=== PATIENT | male | born 1970 | race Caucasian/White ===

== ENCOUNTER 2023-07-31 09:00 | Inpatient (IN) | payer OTHER, SELFPAY ==
[2023-07-31 09:28] VITALS: BP 111/84
[2023-07-31] MEDS: ELIQUIS 5 MG PO ×2 (09:30→20:15)
[2023-07-31] MEDS: CARDIZEM CD 120 MG PO (09:30)
[2023-07-31 09:56] LABS: Hematocrit 36.1 % (39.0-52.0); Hemoglobin 12.8 g/dL (13.0-18.0); Mean Corp Hgb Conc. 35.5 g/dL (33.0-37.0); Mean Corpuscular Hgb 31.1 pg (27.0-31.0); Mean Corpuscular Volume 87.8 fL (80.0-94.0); Mean Platelet Volume 9.5 fL (7.4-10.4); Platelet Count 318 10^3/uL (130-400); Red Blood Cell Count 4.11 10^6/uL (4.70-6.10); Red Cell Dist. Width 12.3 % (11.5-14.5)
[2023-07-31 10:05] LABS: ALT (SGPT) 30 U/L (0-50); AST (SGOT) 28 U/L (17-59); Albumin 4.2 g/dl (3.5-5.0); Alkaline Phosphatase 64 U/L (38-126); Blood Urea Nitrogen 16 mg/dl (9-20); Calcium 9.4 mg/dl (8.4-10.2); Carbon Dioxide 29 mmol/L (22-30); Chloride 105 mmol/L (98-107); Glucose 85 mg/dl (70-99); Magnesium 2.2 mg/dl (1.6-2.3); Potassium 4.3 mmol/L (3.5-5.1); Sodium 137 mmol/L (135-145); Total Bilirubin 0.7 mg/dl (0.2-1.3); eGFR > 60.00
--- NOTE | 2023-07-31 10:23 | W.CARD.TIKOS ---
Initiate Tikosyn
-
I verify that the patient has not taken any verapamil (Isoptin/Calan), ketoconazole (Nizoral), cimetidine (Tagamet), trimethoprim (Trimpex), trimethoprim/sulfamethoxazole (Bactrim), megesterol (Megace), prochlorperazine (Compazine),
hydrochlorothiazide (HCTZ), dolutegravir (Tivicay) or any Class I or Class III anti-arrhythmic within the last three days
AND
I verify that the patient has not taken amiodarone within the last THREE months, or that the patient's amiodarone plasma concentration is <0.3 mcg/mL.
Creatinine 1.0 mg/dL (0.7-1.3) 07/31/23 09:38
CrCl greater than 60.
Does patient have a Ventricular Conduction Abnormality: No
I have assessed the baseline QTc interval (using QT for heart rate less than 60 bpm) and deemed the patient is appropriate for Dofetilide therapy. I understand that Tikosyn is contraindicated if the QTc is >440msec (500msec in patients with
ventricular conduction abnormalities).
Baseline QTc (in msec): 442
QTc interval is greater than 440msec without conduction abnormality OR greater than 500msec with a conduction abnormality, but acceptable to proceed per Cardiology attending.
Reason for Administration with Prolonged QTc: Other Atrial Arrhythmia
Ordering Physician: Roni West
--- NOTE | 2023-07-31 10:23 | W.PN.CARDCBS ---
Addendum entered and electronically signed by Deepa Woods DO 07/31/23 12:22:
I saw and examined the patient.
The Slide Fastener Chain Assembler's note was reviewed and I agree with the note.
Comment: Seen and examined with at bedside. Patient offers no specific complaints admitted for Tikosyn initiation. He denies interruption or missed doses of Eliquis
GEN: NAD. AAOx3
HEENT: EOMI, MMM
LUNGS: CTA B/L, no wheezes or rales
CV: Irreg irreg, S1/S2, no murmur
ABD: soft, BS+, NT, ND
EXT: No clubbing, cyanosis, lesions or edema B/L
NEURO: Gross non-focal
Plan:
-Elective admission for Tikosyn loading for persistent Afib.
-Patient was seen in [facility] for a [facility] and syncope 01/09/23 and found to be in new Afib. He returned for a LISBETH/CV 01/25/24 and was back in Afib by 01/31/23 based on his HR being 103 by Kardiamobile device, but he never feels palpitations, heart racing or
fatigue. Patient was seen by EP in the office 02/20/23 and reviewed ablation vs AAD and patient took time to consider his options and then decided on Tikosyn after follow up visit 07/17/23.
- Reviewed Tikosyn medication and QTc monitoring. Reviewed the possibility of spontaneous conversion and if not, then DCCV on 08/02/23.
-Start Tikosyn 500 mcg q 12 hours with CrCl greater than 60.
-Tele and EKG monitoring
-Cont outpatient dose of Cardizem CD 120 mg daily for now and follow HR.
-Patient denies missing any doses of Eliquis 5 mg BID.
-Potassium and magnesium normal at 4.3/2.2 respectively. Repeat BMP in AM.
-OP follow up with EP
Original Note:
Today's Communication / Plan
-
Start Tikosyn 500 mcg q 12 hours and follow QTc by ECG
Impression / Plan
-
CP: [facility], Dr. Carrington
Cardiology: Dr. West
Impression:
Direct admission for Tikosyn loading 07/31/23
Persistent Afib
s/p LISBETH/CV 01/24/23
Chronic Eliquis OAC
h/o ER visit for fall, syncope and new Afib 01/09/23
Echo 01/09/2023: EF 55-60%, no significant valve disease, PAP 22 mmHg
LISBETH 01/24/23: EF 55-60%, no REJI thrombus, mild MR, normal aortic valve
Plan:
-Patient presents to for elective admission for Tikosyn loading for persistent Afib. Patient was seen in [facility] for a [facility] and syncope 01/09/23 and found to be in new Afib. He returned for a LISBETH/CV 01/25/24 and was back in Afib by 01/31/23 based on his
HR being 103 by Cardia mobile device, but he never feels palpitations, heart racing or fatigue. Patient was seen by EP in the office 02/20/23 and reviewed ablation vs AAD and patient took time to consider his options and then decided on Tikosyn after
follow up visit 07/17/23. Patient has not missed any doses of Eliquis.
-Talked with patient and significant other in the room. Reviewed Tikosyn medication and QTc monitoring. Reviewed the possibility of spontaneous conversion and if not then CV on 08/02/23.
-Start Tikosyn 500 mcg q 12 hours with CrCl greater than 60.
-Cont outpatient dose of Cardizem CD 120 mg daily for now and follow HR.
-Patient denies missing any doses of Eliquis 5 mg BID.
-Potassium and magnesium normal at 4.3/2.2 respectively. Repeat BMP in AM.
-Talked with patient and SO about ablation as well. Current plan is to proceed with Tikosyn load and gauge symptoms in SR, if he is truly asymptomatic in Afib vs SR then he might opt for rate control along, but if he feels better then he would be
interested in ablation
Progress Note - Relief Manager
Subjective
Date of Service: July 31, 2023
Feels well, no palpitations
Objective
Labs:
07/31/23 09:
07/31/23:
Labs
Hgb 12.8 g/dL (13.0-18.0) L 07/31/23:
Hct 36.1 % (39.0-52.0) L 07/31/23:
Plt Count 318 10^3/uL (130-400) 07/31/23 09:
Sodium 137 mmol/L (135-145) 07/31/23 09:
Potassium 4.3 mmol/L (3.5-5.1) 07/31/23:
BUN 16 mg/dl (9-20) 07/31/23 09:38
Creatinine 1.0 mg/dL (0.7-1.3) 07/31/23 09:38
Glucose 85 mg/dl (70-99) 07/31/23 09:38
Vital Signs and I&O:
111/84, HR 82, RR 16, spO2 98% RA
Physical Exam
Physical Exam
GEN: NAD. AAOx3
HEENT: EOMI, MMM
LUNGS: CTA B/L, no wheezes or rales
CV: Irreg irreg, S1/S2, no murmur
ABD: soft, BS+, NT, ND
EXT: No clubbing, cyanosis, lesions or edema B/L
NEURO: Gross non-focal
SKIN: No rash, warm, dry
[2023-07-31 10:34] VITALS: BMI 26.8
[2023-07-31] MEDS: TIKOSYN 500 MCG PO ×2 (10:51→22:00)
--- NOTE | 2023-07-31 12:31 | CM ---
spoke to pt in room, he is prev indep, lives with his S.O. in a 2 story home with a first floor set up and no steps to enter. he denies any dme's or dc planning needs. plan is for dc to home when medically stable.
[2023-07-31 12:35] VITALS: BP 131/98
[2023-07-31 12:37] VITALS: BP 119/75
--- NOTE | 2023-07-31 13:39 | PTCARENOTE ---
Pt admitted this am for a Tikosyn load. Pt in afib in the 80's to 100's. First dose of Tikosyn given and tolerated well. Yuliet Hale updated on QTC result. Pt with no c/o offered.
[2023-07-31 17:25] VITALS: BP 136/87
[2023-07-31 19:26] VITALS: BP 128/87
[2023-07-31] MEDS: TYLENOL 650 MG PO (20:16)
--- NOTE | 2023-07-31 21:04 | PTCARENOTE ---
assumed care of patient at the change of shift. AAOx3. independent in the room. Afib on tele 80s-100s. increased HR with ambulation. patient denies any symptoms of afib. c/o mild headache. no PRN tylenol ordered. notified Dr. West. Tylenol PRN
order placed per Dr. West and given, see mar. answered all questions. reviewed plan of care with patient and verbalized understanding. call hardy within reach. calls appropriately.
[2023-08-01] VITALS (8 sets, daily range): BP systolic 111–130; BP diastolic 75–93
--- NOTE | 2023-08-01 05:15 | PTCARENOTE ---
patient slept well overnight. no complaints at this time. afib/aflutter 70s-80s.
[2023-08-01 05:50] LABS: Blood Urea Nitrogen 18 mg/dl (9-20); Calcium 9.9 mg/dl (8.4-10.2); Carbon Dioxide 31 mmol/L (22-30); Chloride 102 mmol/L (98-107); Estimated Creatinine Clearance 88 ml/min; Glucose 99 mg/dl (70-99); Potassium 4.4 mmol/L (3.5-5.1); Sodium 140 mmol/L (135-145); eGFR > 60.00
[2023-08-01] MEDS: CARDIZEM CD 120 MG PO (07:56)
[2023-08-01] MEDS: ELIQUIS 5 MG PO ×2 (07:56→19:55)
[2023-08-01] MEDS: TIKOSYN 500 MCG PO ×2 (08:55→19:55)
--- NOTE | 2023-08-01 09:06 | W.PN.CARDCBS ---
Addendum entered and electronically signed by Jorje Hackett MD 08/01/23 11:37:
I saw and examined the patient.
The Shrimp Trawler's note was reviewed and I agree with the note.
Comment:
GEN: No distress, awake, Ox3
HEENT: supple, anicteric, mmm
LUNGS: CTA, no wheezes/rales
CV: irreg, S1/S2, / syst LSB, no gallop
ABD: soft, BS+, NT/ND
EXT: No edema
NEURO: Gross non-focal
SKIN: No rash
Plan:
Remains in atrial flutter. Continue Tikosyn 500 mcg every 12.
QTc 491 ms. Continue to follow QT interval.
Plan for cardioversion in a.m. if remains in a flutter.
Cont Eliquis 5mg po bid
Original Note:
Today's Communication / Plan
-
Cont Tikosyn 500 mcg q12 hours loading and CV in AM
Impression / Plan
-
CP: [facility], Dr. Carrington
Cardiology: Dr. West
Impression:
Direct admission for Tikosyn loading 07/31/23
Persistent Afib
s/p LISBETH/CV 01/24/23
Chronic Eliquis OAC
h/o ER visit for fall, syncope and new Afib 01/09/23
Echo 01/09/2023: EF 55-60%, no significant valve disease, PAP 22 mmHg
LISBETH 01/24/23: EF 55-60%, no REJI thrombus, mild MR, normal aortic valve
Plan:
-QTc stable at 491 ms after 3rd dose of Tikosyn 500 mcg q 12 hours given 08/01/23 AM. 5th dose scheduled for 08/02/23 AM.
-If patient fails to convert overnight then plan is for CV 08/02/23 AM and then d/c to home thereafter
-No missed doses of Eliquis
-Cont usual dose of Cardizem CD 120 mg daily for now, but if bradycardic will need
-Talked with patient and SO about ablation as well. Current plan is to proceed with Tikosyn load and gauge symptoms in SR, if he is truly asymptomatic in Afib vs SR then he might opt for rate control along, but if he feels better then he would be
interested in ablation
HPI: Patient presents to for elective admission for Tikosyn loading for persistent Afib. [facility] was [facility] for [facility] and syncope 01/09/23 and found to be in new Afib. He returned for a LISBETH/CV 01/25/24 and was back in Afib by 01/31/23 based on
his HR being 103 by Cardia mobile device, but he never feels palpitations, heart racing or fatigue. Patient was seen by EP in the office 02/20/23 and reviewed ablation vs AAD and patient took time to consider his options and then decided on Tikosyn
after follow up visit 07/17/23. Patient has not missed any doses of Eliquis.
Progress Note - Sub Master
Subjective
Date of Service: August 01, 2023
He feels well, uneventful night
Objective
Labs:
07/31/23 09:38
08/01/23 05:09
Labs
Hgb 12.8 g/dL (13.0-18.0) L 07/31/23 09:38
Hct 36.1 % (39.0-52.0) L 07/31/23 09:38
Plt Count 318 10^3/uL (130-400) 07/31/23 09:38
Sodium 140 mmol/L (135-145) 08/01/23 05:09
Potassium 4.4 mmol/L (3.5-5.1) 08/01/23 05:09
BUN 18 mg/dl (9-20) 02/06/24 05:09
Creatinine 1.1 mg/dL (0.7-1.3) 08/01/23 05:09
Glucose 99 mg/dl (70-99) 08/01/23 05:09
Vital Signs and I&O:
Vital Signs
Temp Pulse Resp BP Pulse Ox
97.9 F 84 16 111/93 97
08/01/23 07:56 08/01/23 05:11 08/01/23 07:56 08/01/23 05:11 08/01/23 07:56
Vital Signs
Temp Pulse Resp BP Pulse Ox
97.9 F 84 16 111/93 97
08/01/23 07:56 08/01/23 05:11 08/01/23 07:56 08/01/23 05:11 08/01/23 07:56
Intake & Output
07/30/23 07/31/23 08/01/23 08/02/23
06:59 06:59 06:59 06:59
Intake Total 450 / 450
Balance 450 / 450
Physical Exam
Physical Exam
GEN: NAD. AAOx3
HEENT: EOMI, MMM
LUNGS: CTA B/L, no wheezes or rales
CV: Irreg irreg, S1/S2, no murmur
ABD: soft, BS+, NT, ND
EXT: No clubbing, cyanosis, lesions or edema B/L
NEURO: Gross non-focal
SKIN: No rash, warm, dry
--- NOTE | 2023-08-01 14:58 | CM ---
called pts afia badillo, dofetilide is in stock. i called his perscript plan- his monthy copay is $10.00
[2023-08-02 04:47] VITALS: BP 127/97
[2023-08-02 06:59] VITALS: BP 113/86
[2023-08-02] MEDS: ELIQUIS 5 MG PO (08:00)
[2023-08-02] MEDS: CARDIZEM CD 120 MG PO (08:00)
[2023-08-02] MEDS: FLUSH (NSS) 1 FLUSH IV (08:01)
[2023-08-02] MEDS: TIKOSYN 500 MCG PO (09:14)
--- NOTE | 2023-08-02 09:57 | W.PN.CARDCBS ---
Addendum entered and electronically signed by Yuliet Hale PA-C 08/07/23 09:17:
Direct admission for Tikosyn loading 07/31/23
Persistent Afib and typical atrial flutter
s/p LISBETH/CV 01/24/23
Chronic Eliquis OAC
h/o ER visit for fall, syncope and new Afib 01/09/23
Addendum entered and electronically signed by Yuliet Hale PA-C 08/02/23 13:54:
[id number]
Addendum entered and electronically signed by Jorje Hackett MD 08/02/23 10:29:
I saw and examined the patient.
The Group Fitness Instructor's note was reviewed and I agree with the note.
Comment: GEN: No distress, awake, Ox3
HEENT: supple, anicteric, mmm
LUNGS: CTA, no wheezes/rales
CV: irreg, S1/S2, 1/6 syst LSB, no gallop
ABD: soft, BS+, NT/ND
EXT: No edema
NEURO: Gross non-focal
SKIN: No rash
Plan:
Remains in atrial flutter. Continue Tikosyn.
For cardioversion today. Cont Eliquis.
Original Note:
Today's Communication / Plan
-
CV today
Cont Tikosyn 500 mcg
D/C to home today
Impression / Plan
-
PCP: [facility], Dr. Carrington
Cardiology: Dr. West
Impression:
Direct admission for Tikosyn loading 07/31/23
Persistent Afib
s/p LISBETH/CV 01/24/23
Chronic Eliquis OAC
h/o ER visit for fall, syncope and new Afib 01/09/23
Echo 01/09/2023: EF 55-60%, no significant valve disease, PAP 22 mmHg
LISBETH 01/24/23: EF 55-60%, no REJI thrombus, mild MR, normal aortic valve
Plan:
-Remains in Afib and QTc 514 after 4th dose of Tikosyn 500 mcg given 08/01/23 PM. 5th dose scheduled for 08/02/23 AM.
-CV 08/02/23 AM and then d/c to home thereafter
-No missed doses of Eliquis
-Cont usual dose of Cardizem CD 120 mg daily for now, but if bradycardic post-CV will stop, reviewed this possible change with patient.
-Talked with patient and SO about ablation as well. Current plan is to proceed with Tikosyn load and gauge symptoms in SR, if he is truly asymptomatic in Afib vs SR then he might opt for rate control along, but if he feels better then he would be
interested in ablation
-Likely d/c 08/02/23
HPI: Patient presents to for elective admission for Tikosyn loading for persistent Afib. [facility] a [facility] and syncope 01/09/23 and found to be in new Afib. He returned for a LISBETH/CV 01/25/24 and was back in Afib by 01/31/23 based on
his HR being 103 by Cardia mobile device, but he never feels palpitations, heart racing or fatigue. Patient was seen by EP in the office 02/20/23 and reviewed ablation vs AAD and patient took time to consider his options and then decided on Tikosyn
after follow up visit 07/17/23. Patient has not missed any doses of Eliquis.
Progress Note - Medical Payment Poster
Subjective
Date of Service: August 02, 2023
He feels well, no palpitations
Objective
Labs:
07/31/23 09:38
08/01/23 05:09
Labs
Hgb 12.8 g/dL (13.0-18.0) L 07/31/23 09:38
Hct 36.1 % (39.0-52.0) L 07/31/23 09:38
Plt Count 318 10^3/uL (130-400) 07/31/23 09:38
Sodium 140 mmol/L (135-145) 08/01/23 05:09
Potassium 4.4 mmol/L (3.5-5.1) 08/01/23 05:09
BUN 18 mg/dl (9-20) 08/01/23 05:09
Creatinine 1.1 mg/dL (0.7-1.3) 08/01/23 05:09
Glucose 99 mg/dl (70-99) 08/01/23 05:09
Vital Signs and I&O:
Vital Signs
Temp Pulse Resp BP Pulse Ox
98.3 F 120 20 113/86 94
08/02/23 06:57 08/02/23 08:00 08/02/23 06:57 08/02/23 08:00 08/02/23 06:57
Vital Signs
Temp Pulse Resp BP Pulse Ox
98.3 F 120 20 113/86 94
08/02/23 06:57 08/02/23 08:00 08/02/23 06:57 08/02/23 08:00 08/02/23 06:57
Intake & Output
07/31/23 08/01/23 08/02/23 08/03/23
06:59 06:59 06:59 06:59
Intake Total 450 / 450 500 / 500
Balance 450 / 450 500 / 500
Physical Exam
Physical Exam
GEN: NAD. AAOx3
HEENT: EOMI, MMM
LUNGS: CTA B/L, no wheezes or rales
CV: Irreg irreg, S1/S2, no murmur
ABD: soft, BS+, NT, ND
EXT: No clubbing, cyanosis, lesions or edema B/L
NEURO: Gross non-focal
SKIN: No rash, warm, dry
--- NOTE | 2023-08-02 11:36 | PTCARENOTE ---
patient has remained NPO after MN for CV today. report given to dock or pier laborer.
--- NOTE | 2023-08-02 11:42 | ITS.CL.CARDI ---
Central Service Tech - Cardioversion
Cardioversion
Procedure Report:
Date of Procedure:
Procedure: Cardioversion
Indication: Symptomatic atrial fibrillation
Performing Physician: Samuel Hackett MD
Technique: The patient was brought to the holding area. Signed informed consent was obtained. A time out was called and performed. The patient was anesthetized by the anesthesia service. Anticoagulation status was reviewed and appropriate. R2 pads
were placed anteriorly and posteriorly. A 200 J synchronized biphasic shock restored normal sinus rhythm without significant bradycardia. There were no complications.
Conclusion: Uncomplicated cardioversion from atrial fibrillation to sinus rhythm.
Recommendation: Routine post cardioversion care. Continue skilled nursing anticoagulation.
--- NOTE | 2023-08-02 12:26 | PN.CDI ---
CDI
- -
CDI:
Physician Documentation Request
Admit Date: 07/31/23 09:00
Dear Cardiology,
Please review the following and provide your response in the progress notes.
Clinical Indicators:
- 08/02 Cardiology 'Remains in atrial flutter. Continue Tikosyn'
- 08/01 EKG Atrial Flutter - atrial rate 277 bpm
- 08/01 EKG Atrial flutter - atrial rate 300 bpm
If possible, please provide further specificity regarding atrial flutter, such as:
Typical Atrial Flutter - Type I: Classic or common atrial flutter, Rate is 240-340 beats/min. Usually responds to atrial pacing.
Atypical Atrial Flutter - Type II: Less common and more unstable. Rate is 340-440 beats/min. Less responsive to atrial pacing.
Other - please specify
Use of terms such as suspected, likely, concern for, or probable (associated with a specific diagnosis that is being evaluated, monitored, or treated as if it exists) are acceptable and can be coded in the inpatient setting, when documented at the
time of discharge.
Thank you,
Marleyn Bryan RN
CDI Specialist
Please use your independent medical judgment in providing your response.
[2023-08-02 12:38] VITALS: BP 127/86
[2023-08-02 13:36] VITALS: BP 125/93
--- NOTE | 2023-08-02 13:39 | W.DS.TRANS ---
DC Summary - Project Development Engineer
-
Discharge Instructions:
Discharge Diagnosis/Procedures Tikosyn (dofetilide) loading for persistent
atrial fibrillation, successful cardioversion
01/16
Diet As tolerated
Activity As tolerated
Driving Restrictions No driving for 24 hours
Bathing Restrictions None
Instructions:
Stand-Alone Forms: DC Instructions- Cath/EP Lab
Changes to Home Medications: Yes
Discharge Medications:
DC Medications w/original date entered in [facility]
apixaban 5 mg tablet (Eliquis) 5 mg PO BID 01/24/23
diltiazem HCl 120 mg capsule,extended release 24 hr 120 mg PO DAILY 01/24/23
dofetilide 500 mcg capsule (Tikosyn) 500 mcg PO Q12H Arrhythmia #60 caps 08/02/23
Home Medication Changes
New to Tikosyn
Pending Results: No
--- NOTE | 2023-08-02 15:01 | PTCARENOTE ---
Tikosyn obtained from pharmacy and give to patient . patient had successful CV, now in NSR.
--- NOTE | 2023-08-02 15:13 | PTCARENOTE ---
D/C instructions given to patient and , both verbalizes understanding. INT D/C'd, telemetry D/C'd, personal belongings packed and sent home with patient. D/C to home via wc accompanied by staff.
== END 2023-08-02 15:50 | disposition home or self-care (01) | DRG 310 ==
LOC: IVU 09:00
PROVIDERS: Internal Medicine Cardiovascular Disease; Physician Assistant Medical; ADMITTING PHYSICIAN Internal Medicine Cardiovascular Disease; FAMILY PHYSICIAN Family Medicine
PROC: 5A2204Z Restoration of Cardiac Rhythm, Single (ICD-10-PCS; 2023-07-31)
DX: I48.19 Other persistent atrial fibrillation (principal); Z79.01 Long term (current) use of anticoagulants; I48.3 Typical atrial flutter
CPT/HCPCS: 80048; 80053; 83735; 85027; 92960; 93005

== ENCOUNTER → 2023-09-15 07:56 | Outpatient (REF) | payer OTHER, SELFPAY ==
[2023-09-15 12:22] LABS: Blood Urea Nitrogen 19 mg/dl (9-20); Calcium 9.9 mg/dl (8.4-10.2); Carbon Dioxide 26 mmol/L (22-30); Chloride 104 mmol/L (98-107); Glucose 105 mg/dl (70-99); Potassium 4.1 mmol/L (3.5-5.1); Sodium 139 mmol/L (135-145); eGFR > 60.00
== END ==
LOC: HWLAB 07:56
PROVIDERS: ATTENDING PHYSICIAN Internal Medicine Cardiovascular Disease; FAMILY PHYSICIAN Family Medicine
DX: I48.0 Paroxysmal atrial fibrillation (principal)
CPT/HCPCS: 36415; 80048

== ENCOUNTER → 2024-06-21 11:38 | Outpatient (REF) | payer OTHER, SELFPAY ==
[2024-06-21 15:27] LABS: % Basophils 1.2 % (0-2); % Eosinophils 3.5 % (0-6); % Immature Granulocytes 0.4 % (0-0.5); % Lymphocytes 30.7 % (20.5-51.1); % Monocytes 6.4 % (1.7-9.3); % Neutrophils 57.8 % (42.2-75.2); Absolute Basophils 0.1 10^3/uL (0-0.2); Absolute Eosinophils 0.2 10^3/uL (0-0.7); Absolute Lymphocytes 1.5 10^3/uL (1.2-3.4); Absolute Monocytes 0.3 10^3/uL (0.1-0.6); Absolute Neutrophils 2.8 10^3/uL (1.4-6.5); Hematocrit 42.9 % (39.0-52.0); Mean Corp Hgb Conc. 32.6 g/dL (33.0-37.0); Mean Corpuscular Hgb 30.6 pg (27.0-31.0); Mean Corpuscular Volume 93.7 fL (80.0-94.0); Mean Platelet Volume 10.4 fL (7.4-10.4); Nucleated Red Blood Cells % 0 % (-); Platelet Count 246 10^3/uL (130-400); Red Blood Cell Count 4.58 10^6/uL (4.70-6.10); Red Cell Dist. Width 12.9 % (11.5-14.5); White Blood Cell Count 4.9 10^3/uL (4.8-10.8)
[2024-06-21 15:41] LABS: Blood Urea Nitrogen 19 mg/dl (9-20); Calcium 9.7 mg/dl (8.4-10.2); Carbon Dioxide 27 mmol/L (22-30); Chloride 100 mmol/L (98-107); Glucose 128 mg/dl (70-99); Potassium 4.1 mmol/L (3.5-5.1); Sodium 137 mmol/L (135-145); eGFR > 60.00
== END ==
LOC: HWLAB 11:38
PROVIDERS: ATTENDING PHYSICIAN Physician Assistant Medical; FAMILY PHYSICIAN Family Medicine
DX: I48.0 Paroxysmal atrial fibrillation (principal)
CPT/HCPCS: 36415; 80048; 85025

== ENCOUNTER → 2024-07-02 07:39 | Outpatient (REF) | payer OTHER, SELFPAY | LOC: MRI 07:39 | PROVIDERS: ATTENDING PHYSICIAN Internal Medicine Clinical Cardiac Electrophysiology; FAMILY PHYSICIAN Family Medicine | DX: I48.21 Permanent atrial fibrillation (principal); Z01.810 Encounter for preprocedural cardiovascular examination | CPT/HCPCS: 75561; 75565; A9585 ==